=== PATIENT | female | born 1970 | race Caucasian/White ===

== ENCOUNTER 2019-08-16 17:13 | Inpatient (IN) | payer BC, OTHER ==
[~2019-08-16] VITALS: Ht 154.9 cm; Wt 67.6 kg
--- NOTE | 2019-08-16 17:45 | NUR ---
patient arrived to room 103. iv abx finished infusing. called josh CONNORS for orders. see mar.
[2019-08-16 18:29] VITALS: BP 114/75
[2019-08-16] MEDS ORDERED: ACETAMINOPHEN 650 MG SUPP PR PRN (18:30)
[2019-08-16] MEDS ORDERED: ONDANSETRON HCL INJ 2MG/ML 2ML 2 MG/ML VIAL IV PRN (18:30)
[2019-08-16] MEDS ORDERED: MORPHINE SULFATE 2 MG/ML SYR 1ML IV PRN (18:30)
[2019-08-16] MEDS ORDERED: METOPROLOL TARTRATE INJ 1 MG/ML VIAL IV PRN (18:30)
[2019-08-16 18:44] VITALS: BP 114/75
[2019-08-16] MEDS ORDERED: D5NS/KCL 20MEQ 1,000 ML IV SCH ×2 (18:45→20:00)
--- NOTE | 2019-08-16 19:00 | NUR ---
RECEIVED REPORT FROM PREVIOUS NURSE. CALL LIGHT WITHIN REACH. PATIENT IN BED. ROUNDING PERFORMED.
--- NOTE | 2019-08-16 19:11 | NUR ---
order for hida scan placed. per radiology, will call out staff to preform on 08/17/2019
[2019-08-16 20:00] VITALS: BP 125/70
[2019-08-16 20:14] VITALS: BP 125/70
[2019-08-17] VITALS (8 sets, daily range): BP systolic 91–126; BP diastolic 63–81
--- NOTE | 2019-08-17 00:42 | NUR ---
RECEIVED VITAL SIGNS AND SAW PATIENT HAS A TEMPERATURE OF 103 AND HEART RATE OF 123. GAVE PATIENT TYLENOL SUPP AND SOME ICE PACKS. NOTIFIED DR. SARINA DE SOUZA OR THE PATIENT'S VITAL SIGNS AND WHAT HAS BEEN GIVEN TO THE PATIENT
[2019-08-17] MEDS ORDERED: KCL 20MEQ/.9 SOD CHL 1,000 ML IV ONE (01:00)
[2019-08-17] MEDS ORDERED: SODIUM CHLORIDE 0.9% 500ML 500 ML IV ONE (01:15)
[2019-08-17 05:27] LABS: BASOPHILS % 0.3 % (0.0-1.0); EOSINOPHILS % 0.1 % (0.0-6.0); HEMATOCRIT 35.5 % (34.2-44.1); HEMOGLOBIN 12.3 g/dL (12.0-16.0); LYMPHOCYTES # (AUTO) 2.3 (1.0-3.2); LYMPHOCYTES % 17.3 % (18.0-39.1); MEAN CORPUSCULAR HEMOGLOBIN 30.8 pg (28-32); MEAN CORPUSCULAR HGB CONC 34.6 g/dL (31-35); MEAN CORPUSCULAR VOLUME 88.8 fL (81-99); MONOCYTES # (AUTO) 0.7 (0.2-0.8); MONOCYTES % 5.1 % (4.4-11.3); NEUTROPHILS # (AUTO) 10.3 (2.1-6.9); NEUTROPHILS % 76.5 % (38.7-80.0); PLATELET COUNT 123 x10e3/uL (140-360); RED CELL DISTRIBUTION WIDTH 12.8 % (11.7-14.4)
[2019-08-17 05:59] LABS: ALANINE AMINOTRANSFERASE 179 IU/L (0-55); ALBUMIN 2.5 g/dL (3.5-5.0); ALBUMIN/GLOBULIN RATIO 0.9 (0.8-2.0); ALKALINE PHOSPHATASE 120 IU/L (40-150); ANION GAP 13.5 mmol/L (8-16); BLOOD UREA NITROGEN 15 mg/dL (7-26); BUN/CREATININE RATIO 22 (6-25); CALCIUM 7.7 mg/dL (8.4-10.2); CARBON DIOXIDE 24 mmol/L (22-29); CHLORIDE 101 mmol/L (98-107); CHOL/HDL RATIO 14.1 (3.0-3.6); CHOLESTEROL 127 MD/DL (0-199); CREATININE, SERUM 0.68 mg/dL (0.57-1.11); EST GLOMERULAR FILTRATION RATE > 60 ML/MIN (60-); GLUCOSE 102 mg/dL (74-118); HDL CHOLESTEROL 9 MG/DL (40-60); LDL CHOLESTEROL 39 MG/DL (60-130); MAGNESIUM 1.9 MG/DL (1.3-2.1); PHOSPHORUS 2.1 MG/DL (2.3-4.7); POTASSIUM 3.5 mmol/L (3.5-5.1); SODIUM 135 mmol/L (136-145); TRIGLYCERIDES 396 MG/DL (0-149)
[2019-08-17 06:03] LABS: THYROID STIMULATING HORMONE 0.705 uIU/mL (0.350-4.940)
--- NOTE | 2019-08-17 07:06 | NUR ---
GAVE BEDSIDE REPORT TO ONCOMING NURSE. CALL LIGHT WITHIN REACH. PATIENT IN BED. HOURLY ROUNDING PERFORMED.
--- NOTE | 2019-08-17 07:54 | Consultation ---
DATE OF CONSULTATION: 08/17/2019 HISTORY OF PRESENT ILLNESS: The patient is a 49-year-old female, who has main complaint of fever. She has temperature up to 102.4, actually 103, after admission. This has been going on for about 9 days. She has associated nausea and vomiting and some diarrhea. The patient went to [facility] emergency room. She was evaluated. CT of the abdomen and pelvis and the only abnormal finding was a distended gallbladder. The patient denies any abdominal pain, however. She has not had similar symptoms in the past. PAST MEDICAL HISTORY: Otherwise unremarkable. She has no chronic medical problems. MEDICATIONS: There were no current medications. PAST SURGICAL HISTORY: Only previous surgery is section. ALLERGIES: SHE HAS NO KNOWN ALLERGIES. FAMILY HISTORY: Noncontributory. SOCIAL HISTORY: The patient smokes cigarettes. Occasionally drinks alcohol. REVIEW OF SYSTEMS: As stated above, otherwise was negative. PHYSICAL EXAMINATION: GENERAL: The patient is awake and alert. She is in no distress. VITAL SIGNS: Temperature 103, last evening with associated tachycardia, otherwise heart rate around 100. HEENT: The sclerae is not icteric. NECK : Has no masses. LUNGS: Equal breath sounds are clear bilaterally. CARDIAC: Regular rate and rhythm with no murmur. ABDOMEN: Soft. There was slight epigastric tenderness. There was no mass. There was no distention. There was no organomegaly. EXTREMITIES: Have no edema. Pulses are palpable. NEUROLOGIC: Intact. LABORATORY TESTS: White blood cell count 13.5, hemoglobin and hematocrit are normal. Platelet count is slightly low. Chemistries revealed elevated liver function tests. Bilirubin 1.1. ASSESSMENT: This is a 49-year-old female with fever, possibly due to gallbladder disease. Usually, there is more pain associated with gallbladder disease as fever. PLAN: Our plan to evaluate further with ultrasound of the gallbladder as well as HIDA scan. There are no signs of peritonitis. No findings that would warrant immediate surgical intervention. Thank you for asking me to see Ms. Horner. MD YOMAIRA Malagon/TYREL /[id number]
[2019-08-17 08:08] LABS: LYMPHOCYTES % (MANUAL) 15 % (19-48); MONOCYTES % (MANUAL) 5 % (3.4-9.0); NEUTROPHILS % (MANUAL) 80 % (40-74)
[2019-08-17] MEDS: FAMOTIDINE 20 MG/2 ML VIAL IV SCH ×2 (08:37→16:54)
--- NOTE | 2019-08-17 10:13 | Diagnostic Imaging Report ---
EXAM: Right Upper Quadrant Ultrasound INDICATION: ^distended gallbladder on CT COMPARISON: None. TECHNIQUE: Transverse and longitudinal images of the right upper abdomen were obtained. FINDINGS: Liver: Size: 15.9 cm in the right midclavicular line, Appearance: Normal echogenicity, smooth contour Mass: No focal masses Gallbladder: Stones/Sludge: None Wall: 0.2 cm Appearance: No pericholecystic fluid or hydrops. Sonographic Parekh's Sign: Negative Bile Ducts: Intrahepatic Ducts: No dilatation Extrahepatic Ducts: Common bile duct measures 0.5 cm, no dilatation Pancreas: Visualized portions of the pancreatic head, neck and proximal body are normal. Right Kidney: Size: 11.6 cm Echogenicity: Normal Parenchymal thickness: Normal Collecting system: No hydronephrosis Stones: None Cyst/Mass: None Vessels: Aorta: Visualized portions are normal Inferior Vena Cava: Visualized portions are normal Main Portal Vein: 1.0 cm, normal size with hepatopetal flow. Free Fluid: No ascites or pleural effusion IMPRESSION: Normal right upper quadrant ultrasound. Signed by: Jimy Capellan MD on 08/17/2019 10:10 AM
--- NOTE | 2019-08-17 11:27 | Diagnostic Imaging Report ---
Hepatobiliary Scan with Gallbladder Ejection Fraction Clinical information: Abdominal pain Technique: Following intravenous administration of 6.4 millicuries of Tc-99m mebrofenin, dynamic images of the abdomen in the anterior projection were obtained through 30 minutes. Sincalide (CCK analog) 1.4 micrograms was administered intravenously over 30 minutes with additional imaging for determination of gallbladder ejection fraction. Discussion: Perfusion of the liver is normal. Extraction of tracer by the liver parenchyma is normal. Tracer appears promptly within the biliary tract. The gallbladder begins to fill by 15 minutes post injection of tracer and fills adequately. Tracer is seen in the small bowel by 15 minutes. The gallbladder ejection fraction with sincalide is 12% (normal greater than 40%). Impression: 1. Filling of the gallbladder excludes acute cystic duct obstruction/acute cholecystitis. 2. The decreased gallbladder ejection fraction of 12% supports the clinical diagnosis of chronic cholecystitis/gallbladder dyskinesia. Signed by: Dr. Rose Salazar M.D. on 08/17/2019 11:23 AM
[2019-08-17] MEDS ORDERED: SODIUM CHLORIDE 0.9% 1000ML 1,000 ML IV STA (12:11)
[2019-08-17] MEDS: ACETAMINOPHEN 325 MG TAB PO PRN ×2 (12:57→19:24)
[2019-08-17] MEDS: VANCOMYCIN 1GM/NS 250 ML 250 ML IV SCH (16:54)
--- NOTE | 2019-08-17 16:55 | Diagnostic Imaging Report ---
EXAMINATION: CHEST SINGLE (PORTABLE) INDICTION: fever/ baseline. COMPARISON: CT chest dated 08/16/2019. FINDINGS: AP view TUBES and LINES: None. LUNGS/PLEURA: Lungs are well inflated. There is no evidence of pneumonia or pulmonary edema.. There is no pleural effusion or pneumothorax. HEART AND MEDIASTINUM: The cardiomediastinal silhouette is unremarkable. BONES AND SOFT TISSUES: No acute osseous lesion. Soft tissues are unremarkable. UPPER ABDOMEN: No free air under the diaphragm. IMPRESSION: No acute thoracic abnormality. Signed by: Jimy Capellan MD on 08/17/2019 4:52 PM
--- NOTE | 2019-08-17 19:15 | NUR ---
Patient visited in room during nursing rounds. Patient alert and oriented x3. Ambulatory in room prn. Pt currently with temp of 103 F. IVF order has and will call MD for possible IVF renewal order. Pt on scheduled IV antibiotic treatment. Pt has ice packs on both arm pits and under neck. Will give pt Tylenol 650mg PO for fever. Call ross within reach. Will monitor closely.
--- NOTE | 2019-08-17 19:24 | NUR ---
Pt given Tylenol 650mg PO for temp of 103 F. Will re-check temp later.
--- NOTE | 2019-08-17 20:26 | Consultation ---
DATE OF CONSULTATION: REASON FOR CONSULTATION: Fever. HISTORY OF PRESENT ILLNESS: This patient is a very pleasant 49-year-old white female, denies a past medical history, has been sick for 7 days with fever, not feeling well, no cough, no shortness of breath. The patient went to see her physician. COVID-19 test was negative, but she had fever persisted. She came here. She is being admitted. PAST MEDICAL HISTORY: She denies. PAST SURGICAL HISTORY: She denies. ALLERGIES: NKA. SOCIAL HISTORY: There is no smoking, drug abuse, or alcohol abuse. FAMILY HISTORY: Otherwise unremarkable. REVIEW OF SYSTEMS: HEENT: Negative. PULMONARY: Negative. CARDIAC: Negative. : Negative. SKIN: There is no rash. The patient apparently was seen. The CT scan showed a distended gallbladder. She was seen by Surgery here. A HIDA scan was done, it was negative. PHYSICAL EXAMINATION: I do not detect any right upper quadrant discomfort. Her liver enzyme was elevated. The patient also admits that she has cat, 2 little kittens in her garage and she is taking care of them in the last few weeks. IMPRESSION: Fever, elevated liver enzymes, concern about cat-related disease. We will check for CMV, EBV, and Toxo. Doubt cat-scratch disease. Also blood cultures came back positive for gram-positive cocci. I am not so sure if it is true versus contamination. We will start her on vancomycin for the time being. COVID PCR is still pending. We will follow. MD FATIMAH Coates/TYREL /[id number]
--- NOTE | 2019-08-17 21:08 | NUR ---
Called Dr. Gage and ordered IVF order "fell off". aware and ordered to re-start IVF (D5NS with 20 meqKCL at 75ml/hr) and d/c after 2L IVF given.
[2019-08-17] MEDS: D5NS/KCL 20MEQ 1,000 ML IV SCH (21:40)
--- NOTE | 2019-08-17 22:23 | NUR ---
Robin Thao (WELT TRIMMING MACHINE OPERATOR for Dr. Gage) on the unit and planning to visit jose luis tejada.
[2019-08-17] MEDS ORDERED: TEMAZEPAM 7.5 MG CAP PO PRN (23:30)
[2019-08-17] MEDS ORDERED: POLYETHYLENE GLYCOL 3350 17 GM PACK PO PRN (23:30)
[2019-08-18] VITALS (8 sets, daily range): BP systolic 99–126; BP diastolic 68–81
--- NOTE | 2019-08-18 01:47 | History and Physical ---
PRIMARY CARE PHYSICIAN: Not listed. CONSULTING PHYSICIANS: 1. Claudio Coker MD. 2. Maxi Cortes MD. CHIEF COMPLAINT: Fever. HISTORY OF PRESENT ILLNESS: The patient is a 49-year-old female, who had several infection signs and symptoms beginning on 08/08/2019, such as temperature of a 103, vomiting liquids, very weak, cough, chills, muscle aches. She went to a [facility] ER and got admitted. The patient did have unknown contact with sick co-worker, who was confirmed coronavirus. She denies any increase in shortness of breath with bathroom privileges. She is currently seen in room 103 Med-Surg one. PAST MEDICAL HISTORY: None. PAST SURGICAL HISTORY: , ablation, Essure. FAMILY HISTORY: Father had heart problems. Mother had breast cancer and then later lung cancer. SOCIAL HISTORY: Of note, the patient has two little kittens that she has been taking care of in her garage for the past two weeks. The patient has smoked a quarter of a pack a day since age 33, so about 13 years. She drinks alcohol on occasion. Denies any illicit drug use. ALLERGIES: NO KNOWN ALLERGIES. REVIEW OF SYSTEMS: As per history of present illness. Last bowel movement was this morning. PHYSICAL EXAMINATION: VITAL SIGNS: Temperature 100.6, heart rate 109, T-max 103, blood pressure 105/72, respirations 16, oxygen saturation 97% on room air. Height 5 feet 1 inch, weight 149 pounds, BMI of 28.15. GENERAL: The patient is lying supine in bed. She is awake and alert. LUNGS: Clear to auscultation. Respiratory pattern even and unlabored. HEENT: EOMI. NECK: Supple. No JVD. CARDIOVASCULAR: Regular rate and rhythm. Tachycardia noted. No murmur. ABDOMEN: Bowel sounds positive. Soft, nontender. No guarding. EXTREMITIES: Without pitting edema. No clubbing, cyanosis, or marked swelling. NEUROLOGICAL: GCS 15. Nonfocal. LABORATORY DATA: WBCs 13.48, hemoglobin 12.3, hematocrit 35.5, platelets 123. Sodium 135, potassium 3.5, chloride 101, CO2 of 24, anion gap 13.5, BUN 15, creatinine 0.68, estimated GFR greater than 60, glucose 102. Hemoglobin A1c 5.6%, calcium 7.7, phosphorus 2.1, magnesium 1.9, total bilirubin 1.1, AST 132, ALT 179, alkaline phosphatase 120, total protein 5.3, albumin 2.5. Triglycerides 396, cholesterol 127, LDL 39, HDL 9. TSH 0.705. Urine test negative. Coronavirus PCR collected on 08/16 is pending. Numerous other labs for cytomegalovirus, [place] virus, hepatitis, toxoplasmosis, Bartonella are all pending. Preliminary urine culture remains in progress. Re-intubation required. Preliminary blood culture shows gram-positive cocci in clusters. On 08/16, gallbladder ultrasound shows normal right upper quadrant. HIDA scan shows a decreased gallbladder ejection fraction of 12%, which supports the clinical diagnosis of chronic cholecystitis/gallbladder dyskinesia. Chest x-ray shows no acute thoracic abnormality. CT showed distended gallbladder, hepatic steatosis and hepatomegaly. ASSESSMENT/PLAN: 1. Fever of unknown origin, present on admission; for COVID, possible CMV versus EBV versus toxoplasmosis. 2. Sepsis. Infectious Disease following. Vancomycin has been ordered. Follow up on final blood culture and sensitivity, and urine culture results. Vancomycin trough every third dose. 3. Sepsis with bacteremia, organism CBD to be determined. Continue IV fluids, D5 NS with 20 mEq potassium chloride infusing at 75 mL an hour, 1 L normal saline given as a bolus earlier today as well as an additional 500 mL. 4. Mild hypotension and tachycardia with fever noted, p.r.n. Tylenol on hand. 5. Cough and an active smoker. Smoking cessation encouraged. 6. Generalized weakness. Physical Therapy evaluation and treat. 7. Nausea and vomiting. Continue antiemetic p.r.n. Monitor fluid status. 8. Prophylaxis. Continue Pepcid. H and P time spent 60 minutes. Billing code [id number]. Dictated by Robin Thao, QUEEN PRODUCER Dashawn Gage MD HWP/MODL /[id number]
[2019-08-18] MEDS: VANCOMYCIN 1GM/NS 250 ML 250 ML IV SCH ×2 (04:00→18:19)
[2019-08-18 05:09] LABS: BASOPHILS # (AUTO) 0.1 (0.0-0.1); BASOPHILS % 0.6 % (0.0-1.0); EOSINOPHILS % 0.1 % (0.0-6.0); HEMATOCRIT 34.8 % (34.2-44.1); HEMOGLOBIN 11.8 g/dL (12.0-16.0); LYMPHOCYTES # (AUTO) 3.4 (1.0-3.2); LYMPHOCYTES % 23.9 % (18.0-39.1); MEAN CORPUSCULAR HEMOGLOBIN 30.6 pg (28-32); MEAN CORPUSCULAR HGB CONC 33.9 g/dL (31-35); MEAN CORPUSCULAR VOLUME 90.2 fL (81-99); MONOCYTES % 6.8 % (4.4-11.3); NEUTROPHILS # (AUTO) 9.6 (2.1-6.9); NEUTROPHILS % 67.4 % (38.7-80.0); PLATELET COUNT 155 x10e3/uL (140-360); RED BLOOD COUNT 3.86 x10e6/uL (3.6-5.1); RED CELL DISTRIBUTION WIDTH 13.4 % (11.7-14.4)
[2019-08-18 05:37] LABS: ALANINE AMINOTRANSFERASE 249 IU/L (0-55); ALBUMIN 2.4 g/dL (3.5-5.0); ALBUMIN/GLOBULIN RATIO 0.8 (0.8-2.0); ALKALINE PHOSPHATASE 164 IU/L (40-150); ANION GAP 10.5 mmol/L (8-16); BLOOD UREA NITROGEN 9 mg/dL (7-26); BUN/CREATININE RATIO 15 (6-25); CALCIUM 7.6 mg/dL (8.4-10.2); CARBON DIOXIDE 24 mmol/L (22-29); CHLORIDE 101 mmol/L (98-107); CREATININE, SERUM 0.61 mg/dL (0.57-1.11); EST GLOMERULAR FILTRATION RATE > 60 ML/MIN (60-); GLUCOSE 122 mg/dL (74-118); MAGNESIUM 1.8 MG/DL (1.3-2.1); PHOSPHORUS 1.7 MG/DL (2.3-4.7); POTASSIUM 3.5 mmol/L (3.5-5.1); SODIUM 132 mmol/L (136-145)
[2019-08-18] MEDS: ACETAMINOPHEN 325 MG TAB PO PRN ×3 (05:47→23:54)
[2019-08-18] MEDS ORDERED: DOCUSATE SODIUM LIQD 100 MG/10 ML UDC NG SCH (09:00)
[2019-08-18] MEDS: FAMOTIDINE 20 MG/2 ML VIAL IV SCH ×2 (09:00→17:00)
[2019-08-18] MEDS ORDERED: POTASSIUM PHOSPHATE 20 MM in SODIUM CHLORIDE 0.9% 250ML 250 ML IV ONE (12:00)
[2019-08-18] MEDS: D5NS/KCL 20MEQ 1,000 ML IV SCH ×2 (12:51→20:00)
--- NOTE | 2019-08-18 19:15 | NUR ---
Patient visited in room during nursing rounds. Patient alert and oriented x3. Ambulatory in room prn. Pt still having off and on fever. On IVF (D5NS with 20meqKCL at 75ml/hr) and will be saline locked after the bag has finished. Pt on scheduled IV antibiotic treatment. Call ross within reach. Will monitor closely.
--- NOTE | 2019-08-18 19:59 | NUR ---
Called and spoke (via phone) with Dr. Cortes to inform about elevated liver enzymes of pt on today's labs and if he wanted to order alternative med to give the patient prn for fever aside from Tylenol. MD aware but emphasized we will continue pt on just Tylenol prn for fever.
--- NOTE | 2019-08-18 20:26 | Progress Note ---
DATE: 08/18/2019 SUBJECTIVE: The patient is lying supine in bed. Head of bed is elevated. She looks much better groomed today than yesterday. About 3:00 p.m., she had 103.0 fever. She is still having chills when she is about to have fever or with impending fever. Her last bowel movement was this morning. Her appetite is okay, however, she did not need lunch. She has no pain and she is tired of lying in bed. OBJECTIVE: VITAL SIGNS: Temperature 99.4, heart rate 78, blood pressure 99/68, respirations 16, and oxygen saturation 96%. GENERAL: No acute distress. LUNGS: Clear. Respiratory pattern even and unlabored. HEENT: EOMI. NECK: Supple. No thyromegaly or JVD. CARDIOVASCULAR: Regular rate and rhythm. On D5 normal saline with 20 mEq potassium chloride infusing at 75 mL an hour into her peripheral IV. ABDOMEN: Bowel sounds positive. Soft, nontender. No guarding. EXTREMITIES: No pitting edema, clubbing, cyanosis, or marked swelling. No signs or symptoms of DVT. NEUROLOGICAL: GCS 15, nonfocal. LABORATORY DATA: WBC 14.29, hemoglobin 11.8. Sodium 132, potassium 3.5, carbon dioxide 24, BUN 9, creatinine 0.61, estimated GFR greater than 60, glucose 122, calcium 7.6, and phosphorus 1.7. Magnesium 1.8, total bilirubin 1.3, AST 223, ALT 249, alkaline phosphatase 164, total protein 5.3, and albumin 2.4. Yesterday, hemoglobin A1c 5.6%. Vancomycin trough level today 7.0. She has multiple serology tests pending including Bartonella, CMV, EMV, hepatitis panel, and toxoplasma. Her Coy[place] virus PCR on 08/16 was negative. Staphylococcus Species coag-negative organism noted on blood culture collected 08/15. Final urine culture negative. No new imaging studies. ASSESSMENT AND PLAN: 1. Fever of unknown origin, present on admission-negative for coronavirus disease. The patient cares for kittens in her garage. CMV versus EBV versus toxoplasmosis suspected. Infectious Disease is following. Continue vancomycin. Order entered for vancomycin trough every 3rd dose. 2. Sepsis with bacteremia, organism to be determined. 3. Mild hypotension. Continue IV fluid. She is making good urine. 4. Cough in an active smoker. Smoking cessation encouraged. 5. Generalized weakness. Physical Therapy eval and treat. 6. Nausea and vomiting, improved. Oliverio anderson. Monitor fluid status. 7. Prophylaxis. Pepcid. Billing code [id number]. Time spent 35 minutes. Dictated by Robin Thao, DORY MD CLAUDE CarrP/MODL /[id number]
[2019-08-19] VITALS (8 sets, daily range): BP systolic 118–137; BP diastolic 66–84
[2019-08-19] MEDS: VANCOMYCIN 1GM/NS 250 ML 250 ML IV SCH (04:23)
[2019-08-19 05:41] LABS: BASOPHILS # (AUTO) 0.1 (0.0-0.1); BASOPHILS % 0.6 % (0.0-1.0); EOSINOPHILS % 0.3 % (0.0-6.0); HEMOGLOBIN 11.1 g/dL (12.0-16.0); LYMPHOCYTES # (AUTO) 4.1 (1.0-3.2); LYMPHOCYTES % 32.4 % (18.0-39.1); MEAN CORPUSCULAR HEMOGLOBIN 30.4 pg (28-32); MEAN CORPUSCULAR HGB CONC 33.6 g/dL (31-35); MEAN CORPUSCULAR VOLUME 90.4 fL (81-99); MONOCYTES # (AUTO) 0.9 (0.2-0.8); MONOCYTES % 7.2 % (4.4-11.3); NEUTROPHILS # (AUTO) 7.3 (2.1-6.9); NEUTROPHILS % 57.9 % (38.7-80.0); PLATELET COUNT 189 x10e3/uL (140-360); RED BLOOD COUNT 3.65 x10e6/uL (3.6-5.1); RED CELL DISTRIBUTION WIDTH 13.4 % (11.7-14.4)
[2019-08-19 06:01] LABS: ALANINE AMINOTRANSFERASE 267 IU/L (0-55); ALBUMIN 2.2 g/dL (3.5-5.0); ALBUMIN/GLOBULIN RATIO 0.8 (0.8-2.0); ALKALINE PHOSPHATASE 163 IU/L (40-150); ANION GAP 11.5 mmol/L (8-16); BLOOD UREA NITROGEN 6 mg/dL (7-26); BUN/CREATININE RATIO 11 (6-25); CALCIUM 7.8 mg/dL (8.4-10.2); CARBON DIOXIDE 26 mmol/L (22-29); CHLORIDE 103 mmol/L (98-107); CREATININE, SERUM 0.54 mg/dL (0.57-1.11); EST GLOMERULAR FILTRATION RATE > 60 ML/MIN (60-); GLUCOSE 120 mg/dL (74-118); MAGNESIUM 1.8 MG/DL (1.3-2.1); PHOSPHORUS 2.9 MG/DL (2.3-4.7); POTASSIUM 3.5 mmol/L (3.5-5.1); SODIUM 137 mmol/L (136-145)
[2019-08-19 07:51] LABS: EOSINOPHILS % (MANUAL) 1 % (0-7); MYELOCYTES % (MANUAL) 1 % (0-0); NEUTROPHILS % (MANUAL) 74 % (40-74); PLATELET ESTIMATE ADEQUATE; PLATELET MORPHOLOGY COMMENT FEW EDTA CLUMPING; RBC MORPHOLOGY COMMENT NORMAL
[2019-08-19 07:52] LABS: LYMPHOCYTES % (MANUAL) 20 % (19-48); MONOCYTES % (MANUAL) 4 % (3.4-9.0)
[2019-08-19] MEDS: FAMOTIDINE 20 MG/2 ML VIAL IV SCH ×2 (09:41→17:17)
[2019-08-19] MEDS: D5NS/KCL 20MEQ 1,000 ML IV SCH (12:50)
[2019-08-19] MEDS ORDERED: VANCOMYCIN HCL 1.25 GM in SODIUM CHLORIDE 0.9% 250ML 250 ML IV SCH (16:00)
--- NOTE | 2019-08-19 19:00 | NUR ---
RECEIVED PATIENT IN BEDSIDE SHIFT REPORT. PATIENT RESTING IN BED. NO PAIN REPORTED. NO S&S OF DISTRESS NOTED. BED LOCKED IN LOWEST POSITION, SIDE RAILS UPX2, CALL LIGHT IN REACH.
[2019-08-19] MEDS: ACETAMINOPHEN 325 MG TAB PO PRN (20:59)
[2019-08-20] VITALS: BP 118/78
[2019-08-20 04:00] VITALS: BP 123/79
[2019-08-20 05:46] LABS: BASOPHILS # (AUTO) 0.1 (0.0-0.1); BASOPHILS % 0.6 % (0.0-1.0); EOSINOPHILS # (AUTO) 0.1 (0.0-0.4); EOSINOPHILS % 0.4 % (0.0-6.0); HEMATOCRIT 34.7 % (34.2-44.1); HEMOGLOBIN 11.7 g/dL (12.0-16.0); LYMPHOCYTES # (AUTO) 4.9 (1.0-3.2); LYMPHOCYTES % 38.6 % (18.0-39.1); MEAN CORPUSCULAR HEMOGLOBIN 30.3 pg (28-32); MEAN CORPUSCULAR HGB CONC 33.7 g/dL (31-35); MEAN CORPUSCULAR VOLUME 89.9 fL (81-99); MONOCYTES # (AUTO) 1.1 (0.2-0.8); MONOCYTES % 8.4 % (4.4-11.3); NEUTROPHILS # (AUTO) 6.4 (2.1-6.9); NEUTROPHILS % 50.3 % (38.7-80.0); PLATELET COUNT 225 x10e3/uL (140-360); RED BLOOD COUNT 3.86 x10e6/uL (3.6-5.1); RED CELL DISTRIBUTION WIDTH 13.4 % (11.7-14.4)
[2019-08-20 06:33] LABS: ALANINE AMINOTRANSFERASE 254 IU/L (0-55); ALBUMIN 2.3 g/dL (3.5-5.0); ALBUMIN/GLOBULIN RATIO 0.7 (0.8-2.0); ALKALINE PHOSPHATASE 175 IU/L (40-150); ANION GAP 12.6 mmol/L (8-16); BLOOD UREA NITROGEN 6 mg/dL (7-26); BUN/CREATININE RATIO 11 (6-25); CALCIUM 8.1 mg/dL (8.4-10.2); CARBON DIOXIDE 26 mmol/L (22-29); CHLORIDE 101 mmol/L (98-107); CREATININE, SERUM 0.54 mg/dL (0.57-1.11); EST GLOMERULAR FILTRATION RATE > 60 ML/MIN (60-); GLUCOSE 102 mg/dL (74-118); MAGNESIUM 1.7 MG/DL (1.3-2.1); PHOSPHORUS 3.2 MG/DL (2.3-4.7); POTASSIUM 3.6 mmol/L (3.5-5.1); SODIUM 136 mmol/L (136-145)
[2019-08-20 07:44] VITALS: BP 125/75
[2019-08-20] MEDS ORDERED: TYLENOL PO (08:17)
[2019-08-20] MEDS: FAMOTIDINE 20 MG/2 ML VIAL IV SCH (08:22)
[2019-08-20 08:30] LABS: EOSINOPHILS % (MANUAL) 1 % (0-7); LYMPHOCYTES % (MANUAL) 15 % (19-48); MONOCYTES % (MANUAL) 5 % (3.4-9.0); NEUTROPHILS % (MANUAL) 70 % (40-74); PLATELET ESTIMATE ADEQUATE; PLATELET MORPHOLOGY COMMENT NORMAL; RBC MORPHOLOGY COMMENT NORMAL
[2019-08-20 08:49] VITALS: BP 125/75
[2019-08-20] MEDS ORDERED: ONDANSETRON HCL 4 MG ORAL DISINTEGRATING TAB PO PRN (09:30)
--- NOTE | 2019-08-20 10:48 | NUR ---
Patient discharged home, Alert with no distress, Afebrile, prescription given, IV canula removed with tip intact, no ss of infiltration, , transported via wheelchair to [facility], her daughter here to pick patient
--- NOTE | 2019-08-20 20:57 | Discharge Summary ---
ADMISSION DIAGNOSES: Fever of unknown origin, sepsis with unknown source, generalized weakness, nausea, and vomiting. DISCHARGE DIAGNOSES: Fever of unknown origin, sepsis with unknown source, generalized weakness, nausea, and vomiting, rule out coronavirus disease 2019, rule out bacteremia, rule out urine infection, rule out pneumonia. HISTORY: None. SURGICAL HISTORY: . FAMILY HISTORY: Mother had cancer. SOCIAL HISTORY: The patient admits to smoking about a quarter pack of cigarettes a day and drinks alcohol on occasion. HOSPITAL COURSE: A 49-year-old female complains of temperature of 103, vomiting, very weak cough, chills, and muscle ache since 08/08/2019. She went to a [facility] and got admitted. The patient did have contact with the confirmed coronavirus patient. On admission, COVID was drawn, which was negative. White blood cell count was 13. Ultrasound of the gallbladder was done, which showed normal right upper quadrant ultrasound. A HIDA scan was done, which showed decreased gallbladder EF of 12%, which supports the clinical diagnosis of chronic cholecystitis or gallbladder dyskinesia. Chest x-ray was negative. Blood cultures were negative. Urine culture was negative. The patient began tolerating p.o. and all of her other symptoms disappeared except the intermittent fever. Infectious Disease was consulted, who ann-marie labs for Bartonella, CMV, EBV, hepatitis, and toxoplasma. Per Infectious Disease, the patient can discharge home as these results will take many days. Since she is tolerating diet and feeling better, she can follow up with results outpatient. She was advised to take Tylenol as needed for pain. The patient understands instructions and agrees to plan. She will follow up with primary care and Dr. Cortes in 1 to 2 weeks. Dictated by Silvia Jarrett NP MD OXANA Carr/MODL /[id number]
--- NOTE | 2019-08-23 10:54 | Progress Note ---
DATE: 08/19/2019 SUBJECTIVE: The patient states no chills today, so her legs are much improved. She is sweating considerably today per Infectious Disease. The plan is to let the virus run its course. No complaints of nausea, vomiting, diarrhea, or constipation. Her last bowel movement was today, 7:30 p.m. today. Temperature was high at 102. OBJECTIVE: VITAL SIGNS: Temperature 97.9, heart rate 84, blood pressure 118/76, respirations 18, and oxygen saturation 99%. GENERAL: The patient lying supine in bed. LUNGS: Clear to auscultation. Respiratory pattern even and unlabored. HEENT: EOMI. NECK: Supple. CARDIOVASCULAR: Regular rate and rhythm. No murmur. She has D5 normal saline with 20 mEq of potassium chloride infusing at 75 mL an hour into her peripheral IV. ABDOMEN: Bowel sounds positive. Soft and nontender. EXTREMITIES: Without pitting edema. No clubbing, cyanosis, or signs of DVT. NEUROLOGICAL: GCS 15. Nonfocal. LABORATORY DATA: WBCs 12.69, hemoglobin 11.1, hematocrit 33, platelets 189, neutrophils 57.9%. Sodium 137, potassium 3.5, chloride 103, CO2 26, anion gap 11.5, BUN 6, creatinine 0.54, estimated GFR greater than 60, glucose 120, calcium 7.8, phosphorus 2.9, and magnesium 1.8. Total bilirubin 0.9, AST is 217, ALT 267, and alkaline phosphatase 163. Total protein 5.1 and albumin 2.2. ASSESSMENT AND PLAN: 1. Fever of unknown origin, POA. Negative for coronavirus, cytomegalovirus versus [place] virus versus toxoplasmosis suspected. The patient does care for kittens in her garage. Infectious Disease following. Continue IV vancomycin. 2. Sepsis of bacteremia, organism to be determined. 3. Mild hypotension. Continue IV fluids. She is producing good urine. 4. Cough and active smoker. Smoking cessation encouraged. 5. Mild hypokalemia. Potassium level 3.5. Monitor. 6. Generalized weakness. Physical therapy evaluation and treat. 7. Prophylaxis. Pepcid. 8. Billing code [id number]. Time spent 35 minutes. Dictated by Robin Thao, DORY Dashawn Gage MD P/MODL /[id number]
== END 2019-08-20 10:51 | disposition home or self-care (01) | DRG 872 ==
LOC: MED/SURG 17:24 → OBSVTOIN 08-18 10:55
PROVIDERS: ADMIT Internal Medicine; ATTEND Internal Medicine
DX: A41.9 Sepsis, unspecified organism (principal); Z11.59 Encounter for screening for other viral diseases; F17.210 Nicotine dependence, cigarettes, uncomplicated; E87.6 Hypokalemia; D64.9 Anemia, unspecified; K76.0 Fatty (change of) liver, not elsewhere classified; R16.0 Hepatomegaly, not elsewhere classified
CPT/HCPCS: 36415; 71045; 76705; 78227; 80053; 80061; 80202; 81025; 83036; 83735; 84100; 84443; 85025; 86611; 86644; 86645; 86663; 86664; 86665; 86777; 86778; 87040; 87071; 87086; 87186; 87205; 96360; A9537; G0378; J3370; J7030; J7040; J7050; U0002